=== PATIENT | male | born 1945 | race Caucasian/White ===

== ENCOUNTER 2016-10-09 09:43 | Emergency (ER) | payer OTHER, MEDICARE ==
[~2016-10-09] VITALS: Ht 180.3 cm; Wt 97.5 kg
[~2016-10-09 09:43] MED LIST: DIOVAN 160 MG160 MG PO; FLEXERIL10 MG PO; HYDROMORPHONE HC2 MG PO; MOTRIN 600 MG600 MG PO; PERCOCET 325 MG-5 MG PO; PERCOCET 325 MG1 TA2 PO; Robitussin PO; SIMVASTATIN10 MG PO; Senokot S PO; VALIUM 10 MG. T10 MG PO; VALIUM5 MG PO
--- NOTE | 2016-10-09 09:58 | ED CARDIAC/CP/PALPITATIONS ---
History of Present Illness General Chief Complaint: Palpitations Stated Complaint: SENT BY LAURA CADE, PALPITATIONS X 2 WEEKS Source: patient Exam Limitations: no limitations Allergies Coded Allergies: NO KNOWN ALLERGIES (02/16/14) Reconcile Medications Metoprolol Tartrate 25 MG TABLET 0.5 TAB PO BID htn Rosuvastatin Calcium (Crestor) 10 MG TABLET 1 TAB PO DAILY CHOLESTEROL ( Reported) Tamsulosin HCl 0.4 MG CAP.ER.24H 1 CAP PO DAILY PROSTATE (Reported) Valsartan (Diovan) 160 MG TABLET 1 TAB PO DAILY HIGH CHOL (Reported) Triage Nurses Notes Reviewed? yes Onset: Abrupt Duration: week(s): (2), intermittent Timing: recent history Quality/Severity: moderate, severe HPI: 71-year-old male with a history of hypertension comes into emergency room for further evaluation of fluttering sensation that woke her in the center of his chest intermittently for the past 2 weeks that will last only seconds and then go away. Denies any chest pain. Patient reports some exertional shortness of breath at times. Denies any vomiting. Denies any pain currently. Patient comes in for further evaluation. Denies any fever chills vomiting. Patient had a Holter monitor done a few years ago which showed nothing. Patient denies having a electrician radio that he follows up with. (DIA STONE) Vital Signs & Intake/Output Vital Signs & Intake/Output Vital Signs Date Time Temp Pulse Resp B/P Pulse O2 O2 Flow FiO2 Ox Delivery Rate 10/09 1211 97.0 88 20 164/90 97 Room Air Room Air 10/09 0956 99.7 85 18 195/95 97 Room Air Past History Travel History Traveled to [place] past 21 day No Medical History Any Pertinent Medical History? see below for history Cardiovascular: hypertension History of MRSA: No History of VRE: No History of CDIFF: No Surgical History Surgical History: none Psychosocial History Who do you live with Family Services at Home None What is your primary language Romansh Family History Family History, If Any: No Known Family History. Hx Contributory? No (DIA STONE) Review of Systems Review of Systems Constitutional: Reports: no symptoms. EENTM: Reports: no symptoms. Respiratory: Reports: no symptoms. Cardiovascular: Reports: see HPI. GI: Reports: no symptoms. Genitourinary: Reports: no symptoms. Musculoskeletal: Reports: no symptoms. Skin: Reports: no symptoms. Neurological/Psychological: Reports: no symptoms. Hematologic/Endocrine: Reports: no symptoms. Immunologic/Allergic: Reports: no symptoms. All Other Systems: Reviewed and Negative (DIA STONE) Physical Exam Physical Exam General Appearance: well developed/nourished, no apparent distress, alert Head: atraumatic, normal appearance Eyes: Bilateral: normal appearance. Ears, Nose, Throat: normal pharynx, normal ENT inspection Neck: normal inspection Respiratory: normal breath sounds, no respiratory distress Cardiovascular: regular rate/rhythm Back: normal inspection Extremities: normal inspection, normal range of motion Neurologic/Psych: awake, alert, oriented x 3, normal gait Skin: intact, normal color Core Measures ACS in differential dx? No Severe Sepsis Present: No Septic Shock Present: No (DIA STONE) Progress Differential Diagnosis: AMI, aortic dissection, hyperkalemia, hypovolemia, hyperventilation, myocarditis, pancreatitis, pericarditis, pneumonia, pneumothorax, pulmonary embolism, PUD/GERD, PVCs/PACs, rib fracture, sepsis, unstable angina, V-fib/V-Tach, WPW syndrome Diagnostic Imaging: Viewed by Me: Radiology Read. Discussed w/RAD: Radiology Read. Radiology Impression: EXAM TYPE: RAD - XRY-CHEST XRAY, PA AND LATERAL EXAMINATION: XR CHEST CLINICAL INFORMATION: Heart palpitations. COMPARISON: 01/2016 TECHNIQUE: Single AP view of the chest was obtained FINDINGS: Lungs are well expanded and clear. Cardiac silhouette is normal in size. The mediastinal contours are normal. There is no pneumothorax or pleural effusion. Surgical changes from prior left Tia procedure with intact appearance of visualized anchor screws in the left humeral head. IMPRESSION: No acute cardiopulmonary findings compared to 10/05/2015. DICTATED BY: NANDO GOTTI MD DATE/TIME DICTATED:10/09/161048 ROUTER OPERATOR:CASSIA DATE/TIME TRANSCRIBED:1048 Initial ED EKG: normal intervals, normal p-waves, normal QRS complex, normal sinus rhythm, rate (91) (DIA STONE) Plan of Care: Orders Procedure Date/time Status Telemetry/Beater Out Leveling Machine 10/09 958 Active THYROID STIMULATING HORMONE 10/09 955 Complete TROPONIN LEVEL 10/09 955 Complete MAGNESIUM 10/09 955 Complete COMPREHENSIVE METABOLIC PANEL 10/09 955 Complete CBC WITHOUT DIFFERENTIAL 10/09 955 Complete EKG 10/09 944 Active Laboratory Tests 10/09/16 0958: Anion Gap 15, Estimated GFR 60, BUN/Creatinine Ratio 15.8, Glucose 101 H, Calcium 9.9, Magnesium 2.0, Total Bilirubin 1.0, AST 29, ALT 54, Alkaline Phosphatase 57, Troponin I < 0.01, Total Protein 8.1, Albumin 4.9, Globulin 3.2, Albumin/Globulin Ratio 1.5, TSH 2.880, CBC w Diff NO MAN DIFF REQ, RBC 4.83, MCV 96.3 H, MCH 33.2 H, RDW 13.6, MPV 8.8, Gran % 73.0, Lymphocytes % 16.1 L, Monocytes % 9.7 H, Eosinophils % 0.8, Basophils % 0.4, Absolute Granulocytes 4.5, Absolute Lymphocytes 1.0 L, Absolute Monocytes 0.6, Absolute Eosinophils 0.1, Absolute Basophils 0, PUBS MCHC 34.5 10/09/1657: Magnesium Cancelled, TSH Cancelled Departure Departure Disposition: HOME OR SELF CARE Condition: Stable Clinical Impression Primary Impression: Heart palpitations Referrals: EMILIA CAM,RODOLFO TELLEZ APRN (PCP/Family) Additional Instructions: Follow-up with electrician radio provided this week. Call the office today when you need to schedule an appointment. Return immediately to the emergency room if he experienced any chest pain, vomiting, sweating, shortness of breath or any other concerns. You will likely require a full workup including stress test, echocardiogram, Holter monitor. Take metoprolol as prescribed. No excessive exercise. No shoveling snow. No bicycling. Be evaluated by electrician radio first. Please go over all results of today's visit with your primary care doctor. Contact your primary care doctor to let them know you were here in the emergency room. There may be nonspecific findings which may not be related to your visit today here in the emergency room but may require further evaluation and chronic monitoring by your primary care doctor. If you had a laceration today the chance of foreign body always remains. You should follow-up with your primary care doctor for recheck in 3-5 days for a wound check. If you had an x-ray done there is a chance that a fracture could have been missed on initial read and you should follow-up with your primary care doctor for repeat x-rays if symptoms persist. If your blood pressure was elevated here in the emergency room please have rechecked by her primary care doctor within the next 48 hours by your primary care doctor. If you were prescribed a narcotic here in the emergency room or any type of controlled substances you're not allowed to drive while taking this medication or operate any type of heavy machinery. Narcotics can make you feel lightheaded dizziness nausea and can cause constipation. You may need to cotton picking machine operator a stool softener. Thank you for choosing [facility] emergency room. Please return to the emergency room immediately if you have any other concerns worsening of symptoms. Departure Forms: Customer Survey General Discharge Information Prescriptions: Current Visit Scripts Metoprolol Tartrate 0.5 TAB PO BID #60 TAB Comments 10/09/2016 1:46:26 PM Patient has been in normal sinus rhythm here in the emergency room. Patient has not had any chest pain. Nontoxic-appearing. In no apparent distress. Patient reevaluated multiple times. Spoke with Dr. Grover from cardiology. Patient will follow up this week for further evaluation. It was agreed that the patient be started on metoprolol 12.5 mg twice a day. Patient was seen by Dr. Palacios. Return to emergency room immediately if any other concerns worsening symptoms. (DIA STONE) PA/SKELP PROCESSOR Co-Sign Statement Statement: ED Attending supervision documentation- [X] I saw and evaluated the patient. I have also reviewed all the pertinent lab results and diagnostic results. I agree with the findings and the plan of care as documented in the PA's/SKELP PROCESSOR's documentation. [] I have reviewed the ED Record and agree with the PA's/SKELP PROCESSOR's documentation. [] Additions or exceptions (if any) to the PAs/SKELP PROCESSOR's note and plan are summarized below: [] (MARK CAM,ELFEGO Fall) Critical Care Note Critical Care Note Critical Care Time: non-applicable (DIA STONE)
[2016-10-09] MEDS ORDERED: TAMSULOSIN HCL0.4 M1 PO (10:04)
[2016-10-09] MEDS ORDERED: CRESTOR10 M1 PO (10:04)
[2016-10-09 10:13] LABS: ABSOLUTE BASOPHIL COUNT 0 /CUMM (0.0-0.2); ABSOLUTE EOSINOPHIL COUNT 0.1 /CUMM (0.0-0.7); ABSOLUTE GRANULOCYTE CT 4.5 /CUMM (1.4-6.5); ABSOLUTE MONOCYTE COUNT 0.6 /CUMM (0.10-0.60); BASOPHIL % 0.4 % (0.0-2.0); EOSINOPHIL % 0.8 % (0-5); HEMATOCRIT 46.5 % (42-52); MEAN CORPUSCULAR HGB 33.2 PG (27.0-31.0); MEAN CORPUSCULAR HGB CONC 34.5 G/DL (33.0-37.0); MEAN CORPUSCULAR VOLUME 96.3 FL (80.0-94.0); MEAN PLATELET VOLUME 8.8 FL (7.4-10.4); PLATELET COUNT 220 /CUMM (130-400); RBC DISTRIBUTION WIDTH 13.6 % (11.5-14.5); RED BLOOD CELL CT 4.83 /CUMM (4.70-6.10); WHITE BLOOD CELL COUNT 6.2 /CUMM (4.8-10.8)
--- NOTE | 2016-10-09 10:55 | RADIOLOGY REPORT ---
EXAMINATION: XR CHEST CLINICAL INFORMATION: Heart palpitations. COMPARISON: 10/05/2015 TECHNIQUE: Single AP view of the chest was obtained FINDINGS: Lungs are well expanded and clear. Cardiac silhouette is normal in size. The mediastinal contours are normal. There is no pneumothorax or pleural effusion. Surgical changes from prior left Tia procedure with intact appearance of visualized anchor screws in the left humeral head. IMPRESSION: No acute cardiopulmonary findings compared to 10/05/2015.
[2016-10-09] MEDS ORDERED: METOPROLOL TART25 M1 PO (11:49)
[2016-10-09 12:11] VITALS: BP 164/90
== END 2016-10-09 12:12 ==
LOC: ERH 09:43
PROVIDERS: Physician Assistant Medical
DX: R00.2 Palpitations (principal); I10 Essential (primary) hypertension
CPT/HCPCS: 93005; 93010